=== PATIENT | female | born 1985 | race African-American/Black ===

== ENCOUNTER 2017-09-17 12:43 | Emergency (ER) | payer OTHER ==
[~2017-09-17] VITALS: Ht 160 cm; Wt 59.0 kg
[~2017-09-17 12:43] MED LIST: BIRTH CONTROL; CIPROFLOXACIN500 M1 PO; NORCO 5-325 TA1 EACH PO; PENICILLIN VK500 M1 PO; ZOFRAN4 MG PO
[2017-09-17 13:36] LABS: URINE BILIRUBIN NEGATIVE (Negative); URINE BLOOD NEGATIVE (Negative); URINE CLARITY CLEAR; URINE COLOR YELLOW; URINE GLUCOSE-RANDOM* NEGATIVE (Negative); URINE KETONES NEGATIVE (Negative); URINE NITRITE-REFLEX NEGATIVE (Negative); URINE PROTEIN (DIPSTICK) NEGATIVE (Negative); URINE UROBILINOGEN 0.2 E.U./dl (0.2-1.0)
[2017-09-17 13:37] LABS: URINE LEUKOCYTES-REFLEX 1+ (Negative)
[2017-09-17 13:42] LABS: SQUAMOUS 4-10 Moderate /LPF (0-3)
[2017-09-17 13:43] LABS: BACTERIA-REFLEX 1-9 Few /HPF (None Seen); CASTS None Seen /LPF (None Seen); CRYSTALS None Seen /LPF (None Seen); URINE RBC None Seen /HPF (0-2); URINE WBC-REFLEX 0-5 Rare /HPF (0-5)
[2017-09-17 13:57] LABS: CREATININE 0.5 mg/dL (0.6-1.0)
[2017-09-17 14:03] LABS: ALBUMIN 3.8 g/dL (3.4-5.0); TOTAL BILIRUBIN 0.9 mg/dL (<0.1-1.0)
[2017-09-17 14:05] LABS: ABSOLUTE NEUTROPHILS 1.9 thou/uL (1.4-8.2); EOSINOPHILS 5.3 % (0.0-3.0); HEMATOCRIT 39.7 % (37.0-47.0); LYMPHOCYTES 47.8 % (24.0-44.0); MCH 33.7 pg (26.0-34.0); MCHC 35.2 g/dL (28.0-37.0); MCV 95.8 fL (80.0-100.0); MONOCYTES 6.2 % (1.0-8.0); PLATELET COUNT 187 thou/uL (150-400); POLYS 39.7 % (36.0-66.0); RBC 4.14 mil/uL (4.20-5.00); RDW 12.6 % (10.5-14.5); WBC 4.8 thou/uL (4.0-11.0)
[2017-09-17] MEDS ORDERED: KEFLEX500 M2 PO (15:12)
[2017-09-17] MEDS ORDERED: MOBIC15 MG PO (15:12)
[2017-09-17 15:44] VITALS: BP 111/72
== END 2017-09-17 15:49 | disposition home or self-care (01) ==
LOC: ER 12:43
PROVIDERS: Emergency Medicine
DX: N39.0 Urinary tract infection, site not specified (principal); J45.909 Unspecified asthma, uncomplicated